=== PATIENT | male | born 1970 | race Caucasian/White ===

== ENCOUNTER 2020-01-18 20:24 | Emergency (ER) | payer SELFPAY ==
[~2020-01-18] VITALS: Ht 177.8 cm; Wt 74.8 kg
[2020-01-18 21:58] LABS: COLOR YELLOW (YELLOW)
[2020-01-18 21:59] LABS: BACTERIA 2+; BILIRUBIN NEGATIVE (NEGATIVE); BLOOD NEGATIVE (NEGATIVE); CLARITY CLEAR (CLEAR); GLUCOSE NEGATIVE (NEGATIVE); KETONE NEGATIVE (NEGATIVE); LEUKO ESTERASE 2+ (NEGATIVE); NITRITE POSITIVE (NEGATIVE); RBC 0-2 rbc/hpf (0-2); SPECIFIC GRAVITY 1.015 (1.005-1.030); UROBILINOGEN 0.2 E.U./dl (0.2-1.0); WBC 16-20 wbc/hpf (0-5)
[2020-01-18] MEDS ORDERED: LEVOFLOXACIN500 MG PO ×2 (23:48→23:58)
== END 2020-01-19 00:01 | disposition home or self-care (01) ==
LOC: ED 20:24
PROVIDERS: Emergency Medicine
DX: N45.1 Epididymitis (principal); N39.0 Urinary tract infection, site not specified; N43.3 Hydrocele, unspecified; N50.89 Other specified disorders of the male genital organs

== ENCOUNTER → 2021-07-10 | Outpatient (CLI) | payer OTHER ==
[~2021-07-10] MED LIST: LEVOFLOXACIN500 MG PO
== END | disposition home or self-care (01) ==
LOC: COVID19 16:50
PROVIDERS: ATTEND Internal Medicine
DX: Z11.52 Encounter for screening for COVID-19 (principal)

== ENCOUNTER 2021-08-27 11:01 | Emergency (ER) | payer OTHER ==
[~2021-08-27] VITALS: Ht 177.8 cm; Wt 79.4 kg
[2021-08-27] MEDS ORDERED: IBUPROFEN600 MG PO ×2 (22:00)
[2021-08-27] MEDS ORDERED: CEPHALEXIN500 M1 PO ×2 (22:00)
[2021-08-28] MEDS ORDERED: CEPHALEXIN500 M1 PO (16:49)
== END 2021-08-27 21:16 | disposition left against medical advice (07) ==
LOC: ED 11:01
DX: Z53.21 Procedure and treatment not carried out due to patient leaving prior to being seen by health care provider (principal)

== ENCOUNTER 2021-08-27 18:05 | Emergency (ER) | payer SELFPAY ==
[~2021-08-27] VITALS: Wt 79.4 kg
[2021-08-27] MEDS ORDERED: IBUPROFEN600 MG PO ×2 (22:00)
[2021-08-27] MEDS ORDERED: CEPHALEXIN500 M1 PO ×2 (22:00)
[2021-08-28] MEDS ORDERED: CEPHALEXIN500 M1 PO (16:49)
== END 2021-08-27 23:50 | disposition home or self-care (01) ==
LOC: ED 18:05
DX: L08.9 Local infection of the skin and subcutaneous tissue, unspecified (principal)

== ENCOUNTER 2021-08-28 15:51 | Emergency (ER) | payer SELFPAY ==
[~2021-08-28] VITALS: Wt 77.1 kg
[~2021-08-28 15:51] MED LIST changes: +CEPHALEXIN500 M1 PO; +IBUPROFEN600 MG PO
[2021-08-28] MEDS ORDERED: CEPHALEXIN500 M1 PO (16:49)
== END 2021-08-28 17:09 | disposition home or self-care (01) ==
LOC: ED 15:51
DX: L03.011 Cellulitis of right finger (principal)

== ENCOUNTER 2022-01-26 09:38 | Emergency (ER) | payer SELFPAY ==
[~2022-01-26] VITALS: Ht 180.3 cm; Wt 72.6 kg
== END 2022-01-26 12:55 | disposition left against medical advice (07) ==
LOC: ED 09:38
DX: S61.412A Laceration without foreign body of left hand, initial encounter (principal); W22.8XXA Striking against or struck by other objects, initial encounter; Y93.89 Activity, other specified; Y92.89 Other specified places as the place of occurrence of the external cause; Y99.8 Other external cause status

== ENCOUNTER 2022-02-14 14:47 | Emergency (ER) | payer SELFPAY ==
[~2022-02-14] VITALS: Wt 77.1 kg
[2022-02-14] MEDS ORDERED: CLEOCIN HCL300 MG PO (18:03)
== END 2022-02-14 18:10 | disposition home or self-care (01) ==
LOC: ED 14:47
DX: L02.414 Cutaneous abscess of left upper limb (principal)

== ENCOUNTER 2022-03-20 04:13 | Emergency (ER) | payer SELFPAY ==
[~2022-03-20] VITALS: Ht 180.3 cm; Wt 72.6 kg
[~2022-03-20 04:13] MED LIST changes: +CLEOCIN HCL300 MG PO
[2022-03-20 04:43] LABS: BASO # 0.1 10*3/uL (0.0-0.1); BASO % 0.8 % (0.0-1.0); EOS # 0.4 10*3/uL (0.0-0.4); EOS % 5.8 % (1.0-4.0); HEMATOCRIT 39.9 % (42.0-52.0); LYMPH # 2.2 10*3/uL (1.3-4.4); LYMPH % 35.8 % (27.0-41.0); MEAN CELL VOLUME 92.4 fl (80.0-94.0); MEAN CORPUSCULAR HGB 30.8 pg (27.0-31.0); MEAN CORPUSCULAR HGB CONC 33.3 g/dl (33.0-37.0); MEAN PLATELET VOLUME 9.6 fl (9.6-12.3); MONO # 0.7 10*3/uL (0.1-1.0); MONO % 10.9 % (3.0-9.0); NEUT # 2.8 10*3/uL (2.3-7.9); NEUT % 46.4 % (47.0-73.0); PLATELET COUNT AUTOMATED 180 10*3/uL (130-400); RED BLOOD COUNT 4.32 10*6/uL (4.50-5.90); RED CELL DISTRI WIDTH 12.6 % (0-14.5)
[2022-03-20 04:56] LABS: ACT PARTIAL THROMBO TIME 25.7 SECONDS (20.0-32.1); INTERNATIONAL NORM RATIO 0.9 (2.0-3.5)
[2022-03-20 05:05] LABS: ALKALINE PHOSPHATASE 105 U/L (45-117); BUN 18 mg/dl (7-24); CHLORIDE 112 mmol/L (98-107); CREATININE 0.84 mg/dL (0.70-1.30); SGOT/AST 21 IU/L (3-35); SGPT/ALT 30 U/L (12-78); SODIUM 141 mmol/L (136-145); TOTAL PROTEIN 6.1 gm/dL (6.4-8.2)
[2022-03-20] MEDS ORDERED: PEPCID20 MG PO (09:46)
== END 2022-03-20 09:54 | disposition home or self-care (01) ==
LOC: ED 04:13
PROVIDERS: Emergency Medicine
DX: K29.00 Acute gastritis without bleeding (principal); K21.9 Gastro-esophageal reflux disease without esophagitis

== ENCOUNTER 2022-09-23 19:04 | Emergency (ER) | payer SELFPAY ==
[~2022-09-23 19:04] MED LIST changes: +PEPCID20 MG PO
[2022-09-23] MEDS ORDERED: ZANAFLEX4 MG PO (20:05)
[2022-09-23] MEDS ORDERED: MEDROL DOSEPAK4 MG PO (20:05)
[2022-09-23] MEDS ORDERED: NAPROSYN500 MG PO (20:05)
== END 2022-09-23 20:00 | disposition home or self-care (01) ==
LOC: ED 19:04
DX: S43.402A Unspecified sprain of left shoulder joint, initial encounter (principal); X50.0XXA Overexertion from strenuous movement or load, initial encounter; Y93.89 Activity, other specified; Y92.89 Other specified places as the place of occurrence of the external cause; Y99.0 Civilian activity done for income or pay

== ENCOUNTER 2022-12-23 22:24 | Emergency (ER) | payer SELFPAY ==
[~2022-12-23] VITALS: Ht 167.6 cm; Wt 63.5 kg
[~2022-12-23 22:24] MED LIST changes: +MEDROL DOSEPAK4 MG PO; +NAPROSYN500 MG PO; +ZANAFLEX4 MG PO
[2022-12-23 22:46] LABS: BASO % 0.4 % (0.0-1.0); EOS # 0.1 10*3/uL (0.0-0.4); EOS % 0.5 % (1.0-4.0); HEMATOCRIT 41.8 % (42.0-52.0); LYMPH # 1.3 10*3/uL (1.3-4.4); MEAN CELL VOLUME 92.3 fl (80.0-94.0); MEAN CORPUSCULAR HGB 31.8 pg (27.0-31.0); MEAN CORPUSCULAR HGB CONC 34.4 g/dl (33.0-37.0); MEAN PLATELET VOLUME 9.3 fl (9.6-12.3); MONO # 0.9 10*3/uL (0.1-1.0); MONO % 7.8 % (3.0-9.0); NEUT # 8.8 10*3/uL (2.3-7.9); PLATELET COUNT AUTOMATED 245 10*3/uL (130-400); RED BLOOD COUNT 4.53 10*6/uL (4.50-5.90); RED CELL DISTRI WIDTH 11.9 % (0-14.5); WHITE BLOOD COUNT 11.1 10*3/uL (4.8-10.8)
[2022-12-23 23:01] LABS: ALKALINE PHOSPHATASE 92 U/L (46-116); BUN 17 mg/dl (9-23); CHLORIDE 108 mmol/L (98-107); POTASSIUM 3.2 mmol/L (3.4-5.1); SGPT/ALT 38 U/L (10-49); TOTAL PROTEIN 7.3 gm/dL (6.0-8.0)
== END 2022-12-23 23:07 | disposition left against medical advice (07) ==
LOC: ED 22:24
PROVIDERS: Internal Medicine
DX: R07.89 Other chest pain (principal); I10 Essential (primary) hypertension; K21.9 Gastro-esophageal reflux disease without esophagitis

== ENCOUNTER 2023-10-24 08:27 | Emergency (ER) | payer MEDICAID ==
[~2023-10-24] VITALS: Ht 177.8 cm; Wt 68.0 kg
[2023-10-24] MEDS ORDERED: diphenhydrAMINE hydrochloride 50 MG/ML VIAL IV ONE (08:55)
[2023-10-24] MEDS ORDERED: Dexamethasone Sodium Phospha 20 MG/5 ML VIAL IV ONE (08:55)
[2023-10-24] MEDS ORDERED: FAMOTIDINE 50 ML IV ONE (08:55)
[2023-10-24] MEDS ORDERED: PREDNISONE50 MG PO (09:50)
[2023-10-24] MEDS ORDERED: CEPHALEXIN500 M1 PO (09:50)
== END 2023-10-24 10:16 | disposition home or self-care (01) ==
LOC: ED 08:27
DX: L25.9 Unspecified contact dermatitis, unspecified cause (principal); I10 Essential (primary) hypertension; K21.9 Gastro-esophageal reflux disease without esophagitis

== ENCOUNTER 2024-03-07 16:35 | Emergency (ER) | payer MEDICAID ==
[~2024-03-07] VITALS: Ht 175.2 cm; Wt 72.6 kg
[~2024-03-07 16:35] MED LIST changes: +PREDNISONE50 MG PO
[2024-03-07] MEDS ORDERED: AMOX-CLAV 875-1 EACH PO (17:02)
[2024-03-07] MEDS ORDERED: NAPROSYN500 MG PO (17:02)
[2024-03-07] MEDS ORDERED: Amoxicillin/Clavulanate Pota 875 MG TAB PO ONE ×3 (17:05→17:25)
[2024-03-07] MEDS ORDERED: NAPROXEN 250 MG TAB PO ONE (17:05)
== END 2024-03-07 17:18 | disposition home or self-care (01) ==
LOC: ED 16:35
DX: H66.92 Otitis media, unspecified, left ear (principal); K21.9 Gastro-esophageal reflux disease without esophagitis; I10 Essential (primary) hypertension

== ENCOUNTER 2024-11-16 21:10 | Emergency (ER) | payer MEDICAID ==
[~2024-11-16] VITALS: Ht 175.2 cm; Wt 72.6 kg
[~2024-11-16 21:10] MED LIST changes: +AMOX-CLAV 875-1 EACH PO
== END 2024-11-16 21:38 | disposition left against medical advice (07) ==
LOC: ED 21:10
DX: F41.9 Anxiety disorder, unspecified (principal); I10 Essential (primary) hypertension; K21.9 Gastro-esophageal reflux disease without esophagitis; Z53.29 Procedure and treatment not carried out because of patient's decision for other reasons